=== PATIENT | female | born 1965 | race African-American/Black ===

== ENCOUNTER 2019-02-19 14:12 | Outpatient (CLI) | payer OTHER ==
[~2019-02-19] VITALS: Ht 172.7 cm; Wt 67.1 kg
[2019-02-19] MEDS ORDERED: VITAMIN B COMP1 EAC2 ORAL (15:31)
[2019-02-19] MEDS ORDERED: MAGNESIUM400 M1 PO (15:31)
[2019-02-19] MEDS ORDERED: VITAMIN B122500 MCG PO (15:31)
[2019-02-19] MEDS ORDERED: OMEGA 3 500 SO1 EACH PO (15:31)
[2019-02-19] MEDS ORDERED: DHEA25 MG PO (15:31)
[2019-02-19 15:32] VITALS: BP 112/76
--- NOTE | 2019-02-19 21:15 | Consultation ---
DATE OF CONSULTATION: 02/19/2019 CHIEF COMPLAINT: Screening colonoscopy. HISTORY OF PRESENT ILLNESS: The patient is a very pleasant 54-year-old female without significant past medical history is here for screening colonoscopy evaluation. PAST MEDICAL HISTORY: None. PAST SURGICAL HISTORY: The patient had breast augmentation, , spinal surgery. MEDICATIONS: Please see the long medication reconciliation list mostly vitamins and supplements. FAMILY HISTORY: Father had colon cancer. Mother had dementia. SOCIAL HISTORY: The patient drinks alcohol socially, quit tobacco many years ago. Denies any IV drug abuse. ALLERGIES: No known allergies. REVIEW OF SYSTEMS: A 10-point review of systems was performed and pertinent positives in HPI. PHYSICAL EXAMINATION: VITAL SIGNS: Temperature is 98, blood pressure 112/76, pulse 77, respirations 20. HEENT: Normocephalic and atraumatic. Sclerae anicteric. NECK: Supple. No obvious evidence of lymphadenopathy. CARDIOVASCULAR: Regular rate and rhythm. Plus S1 and S2. No obvious murmur. LUNGS: Clear to auscultation bilaterally. ABDOMEN: Positive bowel sounds. Soft and nontender. No rebound. No guarding. No peritoneal sign. EXTREMITIES: No cyanosis. No clubbing. No edema. ASSESSMENT: The patient is a 54-year-old female without significant past medical history, scheduled for screening colonoscopy. The patient was given instruction for the colonoscopy and the prep, pending authorization. We are going to schedule after authorization is obtained. Jori Domínguez M.D. DR: Fede JOB#: [id number] CC:
== END 2019-02-19 16:00 | disposition home or self-care (01) ==
LOC: PAN 14:12
DX: Z01.818 Encounter for other preprocedural examination (principal); Z81.8 Family history of other mental and behavioral disorders; Z80.0 Family history of malignant neoplasm of digestive organs; Z87.891 Personal history of nicotine dependence
CPT/HCPCS: 99202

== ENCOUNTER 2019-05-25 12:58 | Outpatient (CLI) | payer OTHER ==
[~2019-05-25 12:58] MED LIST: DHEA25 MG PO; MAGNESIUM400 M1 PO; OMEGA 3 500 SO1 EACH PO; VITAMIN B COMP1 EAC2 ORAL; VITAMIN B122500 MCG PO
[2019-05-25 15:14] VITALS: BP 109/74
--- NOTE | 2019-05-25 15:18 | General Progress Note ---
Assessment/Plan Assessment/Plan: s/p colonoscopy only hemorrhoids father with h/o colon ca repeat colon in 5 years Subjective ROS Limited/Unobtainable: Yes Allergies: Coded Allergies: No Known Allergies (Unverified , 02/19/19) Objective Last 24 Hour Vital Signs Date Time Temp Pulse Resp B/P (MAP) Pulse Ox O2 Delivery O2 Flow Rate FiO2 05/25/19 15:14 70 16 109/74 (86) 96 General Appearance: alert EENT: normal ENT inspection Neck: supple Cardiovascular: normal rate Respiratory/Chest: lungs clear Abdomen: normal bowel sounds, non tender, soft Extremities: non-tender Jori Domínguez MD May 25, 2019 15:18
== END 2019-05-25 14:58 | disposition home or self-care (01) ==
LOC: PAN 12:58
DX: K64.9 Unspecified hemorrhoids (principal); Z80.0 Family history of malignant neoplasm of digestive organs
CPT/HCPCS: 99212